=== PATIENT | male | born 1995 | race Two or more races ===

== ENCOUNTER 2022-08-15 17:21 | Emergency (ER) | payer MEDICAID, OTHER ==
[~2022-08-15] VITALS: Ht 167.6 cm; Wt 49.2 kg
[2022-08-15 17:47] VITALS: BP 117/71
== END 2022-08-16 01:51 | disposition left against medical advice (07) ==
LOC: ER 17:21
DX: R56.9 Unspecified convulsions (principal); Z53.21 Procedure and treatment not carried out due to patient leaving prior to being seen by health care provider